=== PATIENT | female | born 1995 | race African-American/Black ===

== ENCOUNTER 2017-08-15 06:35 | Emergency (ER) | payer MEDICARE, MEDICAID ==
[2017-08-15 07:31] LABS: Bilirubin Unable to Interpret (Negative); Blood, Urine Unable to Interpret (Negative); Glucose, Urine (Dipstick) Unable to Interpret mg/dL (Negative); Ketone, Urine Unable to Interpret mg/dL (Negative); Nitrite Unable to Interpret (Negative); Protein, Urine (Dipstick) Unable to Interpret mg/dL (Neg-Trace); Urobilinogen UNABLE TO INTERPRET mg/dL (0.2-1.0)
[2017-08-15 07:43] LABS: Bacteria/HPF 2+ HPF (None Seen); Hyaline Casts/LPF 0-3 HYALINE CAST LPF (0-3 Hyaline); Renal Epithelial 0-3 HPF (0-3); WBC/HPF 21-50 HPF (0-3)
== END 2017-08-15 08:58 | disposition home or self-care (01) ==
LOC: ERS 06:35
DX: N39.0 Urinary tract infection, site not specified (principal); J45.909 Unspecified asthma, uncomplicated; F41.9 Anxiety disorder, unspecified; F31.9 Bipolar disorder, unspecified; F90.9 Attention-deficit hyperactivity disorder, unspecified type; Z87.891 Personal history of nicotine dependence
CPT/HCPCS: 81003; 81015; 81025; 87077; 87086; 87186; 99283

== ENCOUNTER 2017-09-02 15:44 | Emergency (ER) | payer MEDICARE ==
--- NOTE | 2017-09-02 17:07 | RAD ---
AP VIEW OF THE CHEST 09/02/17 INDICATION: Cough, bodyaches and headache. COMPARISON: Prior exam dated 03/15/15. FINDINGS: Low lung volumes accentuate the cardiac silhouette and pulmonary vasculature. The heart size is felt to be mildly prominent. Lungs are clear. No pleural effusions evident. Osseous structures are simila r to the comparison dated 03/15/15. IMPRESSION: 1. No definite acute cardiopulmonary abnormality. 2. Cardiac silhouette remains upper limits of normal. POS: [facility]
[2017-09-02] MEDS ORDERED: Acetaminophen 500 MG TAB ONE (18:25)
== END 2017-09-02 18:32 | disposition home or self-care (01) ==
LOC: ERS 15:44
DX: J20.9 Acute bronchitis, unspecified (principal); J45.909 Unspecified asthma, uncomplicated; F41.9 Anxiety disorder, unspecified; F31.9 Bipolar disorder, unspecified; F90.9 Attention-deficit hyperactivity disorder, unspecified type; Z87.891 Personal history of nicotine dependence
CPT/HCPCS: 71010

== ENCOUNTER 2017-09-06 21:28 | Emergency (ER) | payer MEDICARE ==
[2017-09-06 23:30] LABS: #Eosinphils 0.2 thou/uL (0.0-0.7); #Lymphocytes 4.2 thou/uL (1.20-3.40); #Monocytes 0.6 thou/uL (0.11-0.59); #Neutrophils 6.3 thou/uL (1.40-6.50); %Lymphocytes 37.1 % (21.0-51.0); %Monocytes 5.1 % (0.0-10.0); Hematocrit 31.4 % (36.0-47.0); Mean Platelet Volume 5.4 fL (7.4-10.4); Red Blood Cell (RBC) Count 5.13 mill/uL (4.20-5.40); White Blood Cell (WBC) Count 11.3 thou/uL (4.8-10.8)
[2017-09-06 23:43] LABS: ALT (SGPT) 30 U/L (8-55); AST (SGOT) 46 U/L (5-34); Acetaminophen Less than 6.0 mcg/mL (10.0-30.0); Alkaline Phosphatase 74 U/L (40-150); Anion Gap 13 mmol/L (10-20); BUN (Urea Nitrogen) 13 mg/dL (7.0-18.7); Bilirubin, Total 0.4 mg/dL (0.2-1.2); Calc. Creatinine Clearance 0 mL/min (70-130); Calcium 9.1 mg/dL (7.8-10.44); Carbon Dioxide 22 mmol/L (22-29); Chloride 107 mmol/L (98-107); Estimated GFR-MDRD Greater than 90; Globulin 4.3 g/dL (2.4-3.5); Protein, Total 8.1 g/dL (6.0-8.3); Salicylate Less than 8.0 mg/dL (15.0-30.0)
[2017-09-07 01:50] LABS: Bilirubin Negative (Negative); Blood, Urine Large (Negative); Glucose, Urine (Dipstick) Negative (Negative); Ketone, Urine Negative (Negative); Nitrite Negative (Negative); Protein, Urine (Dipstick) > or equal to 300 mg/dL (Neg-Trace)
[2017-09-07 01:55] LABS: Bacteria/HPF 1+ HPF (None Seen); Hyaline Casts/LPF 4-6 HYALINE CAST LPF (0-3 Hyaline); WBC/HPF 21-50 HPF (0-3)
[2017-09-07 01:58] LABS: Amphetamine Not Detected (NotDetected); Methadone Not Detected (NotDetected); Methamphetamine Not Detected (NotDetected); RBC/HPF 21-50 HPF (0-3)
[2017-09-07 02:00] LABS: Yeast-All Forms None Seen HPF (None Seen)
[2017-09-07] MEDS ORDERED: Benzonatate 100 MG CAP PO SCH (06:15)
[2017-09-07] MEDS ORDERED: Azithromycin 250 MG TAB PO SCH (06:15)
== END 2017-09-07 13:55 ==
LOC: ERS 21:28
DX: R45.851 Suicidal ideations (principal); F32.9 Major depressive disorder, single episode, unspecified; J45.909 Unspecified asthma, uncomplicated; F41.9 Anxiety disorder, unspecified; F90.9 Attention-deficit hyperactivity disorder, unspecified type; Z79.899 Other long term (current) drug therapy
CPT/HCPCS: 36415; 80053; 80306; 80307; 81003; 81015; 84443; 84703; 85025; 87086; 99285